=== PATIENT | female | born 1990 | race Caucasian/White ===

== ENCOUNTER 2021-05-19 16:18 | Outpatient (REF) | payer MEDICARE, MEDICAID, SELFPAY | END 2021-05-19 16:19 | disposition home or self-care (01) | LOC: HO.LNP 16:18 | PROVIDERS: Visit Provider Hospitalist | DX: R30.0 Dysuria (principal) | CPT/HCPCS: 87086; 87088; 87186 ==

== ENCOUNTER 2021-12-09 11:20 | Outpatient (REF) | payer MEDICARE, MEDICAID, SELFPAY | END 2021-12-09 11:21 | disposition home or self-care (01) | LOC: HO.LNP 11:20 | PROVIDERS: Visit Provider Physician Assistant | DX: R30.0 Dysuria (principal) | CPT/HCPCS: 87086; 87088; 87186 ==

== ENCOUNTER 2022-11-19 13:40 | Emergency (ER) | payer OTHER, MEDICARE, MEDICAID, SELFPAY ==
--- NOTE | ~2022-11-19 | XR_ITS ---
EXAMINATION: XR LUMBOSACRAL SPINE CLINICAL INFORMATION: Lower lumbar back pain. COMPARISON: None TECHNIQUE: Three views of the lumbosacral spine. FINDINGS: No acute compression deformity or subluxation. Disc heights are maintained. Posterior elements are within normal limits. The SI joints are symmetric. No significant paraspinal soft tissue abnormality. XR/XR lumbar spine 2-3V IMPRESSION: No acute compression deformity or subluxation. If pain persists, consider further evaluation with an MR of the lumbar spine.
--- NOTE | 2022-11-19 13:52 | ED_ITS ---
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 Pain started gradually and rapidly. His low back. Radiates to the buttock in the lower extremities. Pain is described as severe in nature. Worse with movement. It is also worse with certain positions. Bet ter with rest. She has tried ibuprofen which does improve her symptoms. Recently switch from gabapentin to Lyrica which is also improved some of her symptomatology. She denies any loss of bowel or bladder control. She denies any intravenous drug abuse. She has had no fevers or chills. She has had no new neurologic complaints. She does have some ankle related issues which she is being followed for an had a recent MRI. Symptoms were preceded by a yoga routine. There is no traumatic injury. <Gomez Cruz MD - Last Filed: 11/19/22 22:11> Related Data Home Medications: Home Medications Medication Instructions Recorded Confirmed acetaminophen 325 mg tablet 650 mg PO TID PRN fever 04/24/21 12/23/21 azelastine 205.5 mcg (0.15 %) 1 spray intranasal BID 04/24/21 12/23/21 nasal spray budesonide 32 mcg/actuation nasal intranasal 04/24/21 12/23/21 spray (Rhinocort Allergy) cromolyn 100 mg/5 mL oral mg PO 04/24/21 12/23/21 concentrate epinephrine 0.3 mg/0.3 mL IM 04/24/21 12/23/21 injection, auto-injector famotidine 20 mg tablet 0 mg PO 04/24/21 12/23/21 levocetirizine 5 mg tablet mg PO 04/24/21 12/23/21 magnesium oxide 400 mg (241.3 mg 400 mg PO DAILY 04/24/21 12/23/21 magnesium) tablet pregabalin 75 mg capsule 75 mg PO BID 04/24/21 12/23/21 triamcinolone acetonide 0.1 % appl topical BID 04/24/21 12/23/21 topical cream cyclobenzaprine 10 mg tablet 10 mg PO BID PRN 12/09/21 12/23/21 dextroamphetamine-amphetamine 20 40 mg PO BID 12/09/21 12/23/21 mg tablet (Adderall) lorazepam 1 mg tablet 1 mg PO TID PRN 12/09/21 12/23/21 pantoprazole 40 mg tablet,delayed 40 mg PO DAILY 12/09/21 12/23/21 release riboflavin (vitamin B2) 400 mg 400 mg PO DAILY 12/09/21 12/23/21 tablet vortioxetine 20 mg tablet 20 mg PO DAILY 12/09/21 12/23/21 (Trintellix) fluticasone propionate 50 1 spray intranasal DAILY 03/02/22 mcg/actuation nasal spray,suspension (Flonase Allergy Relief) Previous Rx's Medication Instructions Recorded azithromycin 250 mg tablet See Rx Instructions PO .COMPLEX #6 03/02/22 tabs cyclobenzaprine 10 mg tablet 10 mg PO TID PRN muscle spasm #10 11/19/22 tabs meloxicam 15 mg tablet 15 mg PO DAILY PRN pain #14 tabs 11/19/22 oxycodone 5 mg tablet 5 mg PO Q8H PRN pain #7 tabs 11/19/22 prednisone 20 mg tablet 20 mg PO DAILY #5 tabs 11/19/22 <DICKSON Lara - Last Filed: 11/19/22 14:01> Allergies/Adverse Reactions: Allergies Allergy/AdvReac Type Severity Reaction Status Date / Time No Known Allergies Allergy Verified 03/02/22 10:07 <DICKSON Lara - Last Filed: 11/19/22 14:01> Review of Systems Review of Systems: CONSTITUTIONAL: Denies weight loss, fever and chills. HEENT: Denies changes in vision and hearing. RESPIRATORY: Denies SOB and cough. CV: Denies palpitations no CP. GI: Denies abdominal pain, nausea, vomiting and diarrhea. : Denies dysuria and urinary frequency. MSK: Positive myalgia and joint pain. SKIN: Denies rash and pruritus. NEUROLOGICAL: Denies headache and syncope. PSYCHIATRIC: Denies recent changes in mood. Denies anxiety and depression. All other ROS are negative unless in HPI <Gomez Cruz MD - Last Filed: 11/19/22 22:11> [facility] Social History Social History: Social History Alcohol intake: current Alcohol intake frequency: holidays/special occasions only Alcohol type: wine and hard liquor Smoked in Last 30 Days: No Use of substances other than those prescribed or required for medical reasons: Yes Substance Use Type: Marijuana Substance Use Frequency: Daily Substance Use Frequency Other:: daily at bedtime Advance Directives: No <DICKSON Lara - Last Filed: 11/19/22 14:01> Physical Exam Vital Signs: Vital Signs: Last Vital Signs Pulse 57 11/19/22 19:31 Resp 14 11/19/22 20:46 BP 124/73 11/19/22 19:31 Pulse Ox 99 11/19/22 19:31 O2 Del Method 11/19/22 19:31 BMI result Body Mass Index 30.5 <DICKSON Lara - Last Filed: 11/19/22 14:01> Vital Signs: Last Vital Signs Pulse 57 11/19/22 19:31 Resp 14 11/19/22 20:46 BP 124/73 11/19/22 19:31 Pulse Ox 99 11/19/22 19:31 O2 Del Method 11/19/22 19:31 BMI result Body Mass Index 30.5 <Gomez Cruz MD - Last Filed: 11/19/22 22:11> GEN: Well developed, no acute distress, alert, oriented HEENT: Normocephalic, atraumatic, normal external ears, nose appears normal, no oropharyngeal edema or exudates Eyes: Normal to appearance Neck: Supple, no lymphadenopathy Respiratory: Talks in complete sentences, no respiratory distress, clear to auscultation bilaterally Cardiovascular: Regular rate and rhythm, no murmurs rubs or gallops Abdomen: Soft, nontender, nondistended, no guarding, no rebound Back: No CVA tenderness Extremities: No clubbing cyanosis or edema Neurologic: No focal neurologic deficits, cranial nerves 2-12 intact, strength is 5/5 bilaterally Skin: + rash <Gomez Cruz MD - Last Filed: 11/19/22 22:11> Course Course Course Narrative: RME - 32 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 Left side is worse than the right. Reports bilateral leg weakness, in the lower legs. Arrives to triage in a wheelchair. Reports can ambulate with a limp. Also reports many other complaints including nausea, left ear pain, chronic left ankle pain. Plan: will need to be fully examined in treatment room, medicated and reassessed prior to discharge <DICKSON Lara - Last Filed: 11/19/22 14:01> Reevaluation(s) Reevaluation #1: Patient is doing much better at this time. Her nausea has resolved. She did get a dose of Zofran. She complained of some right ear pain but the tympanic membrane was clear there is no evidence of otitis media or externa. We talked about reasons to return to the emergency department otherwise she will follow-up with her primary care provider for pain management <Gomez Cruz MD - Last Filed: 11/19/22 22:11> Time: 22:03 <Gomez Cruz MD - Last Filed: 11/19/22 22:11> Medications Administered Discontinued Medications Generic Name Dose Route Start Last Admin Trade Name Janes PRN Reason Stop Dose Admin Dexamethasone Sodium Phosphate 10 mg 11/19/22 19:59 11/19/22 20:46 Dexamethasone Sod Phosphate 10 Mg/Ml Vial IVPUSH 11/19/22 20:00 10 mg ONCE ONE Administration Diphenhydramine HCl 25 mg 11/19/22 19:59 11/19/22 20:44 Diphenhydramine Hcl 50 Mg/Ml Vial IVPUSH 11/19/22 20:00 25 mg ONCE ONE Administration Famotidine 20 mg 11/19/22 20:07 11/19/22 20:45 Famotidine/Pf 20 Mg/2 Ml Vial IVPUSH 11/19/22 20:08 20 mg ONCE ONE Administration Ketorolac Tromethamine 15 mg 11/19/22 19:59 11/19/22 20:45 Ketorolac Tromethamine 15 Mg/Ml Vial IVPUSH 11/19/22 20:00 15 mg ONCE ONE Administration Lidocaine 2 patch 11/19/22 19:59 11/19/22 20:46 Lidocaine 4 % Patch Adh..Patch TRANSDERMA 11/19/22 20:00 2 patch ONCE ONE Administration Protocol Morphine Sulfate 4 mg 11/19/22 19:59 11/19/22 20:46 Morphine Sulfate 4 Mg/Ml Cartridge IVPUSH 11/19/22 20:00 4 mg ONCE ONE Administration Protocol Ondansetron HCl 4 mg 11/19/22 21:08 11/19/22 21:29 Ondansetron Hcl 4 Mg/2 Ml Vial IVPUSH 11/19/22 21:09 4 mg ONCE ONE Administration <DICKSON Lara - Last Filed: 11/19/22 14:01> Medications Administered Discontinued Medications Generic Name Dose Route Start Last Admin Trade Name Freq PRN Reason Stop Dose Admin Dexamethasone Sodium Phosphate 10 mg 11/19/22 19:59 11/19/22 20:46 Dexamethasone Sod Phosphate 10 Mg/Ml Vial IVPUSH 11/19/22 20:00 10 mg ONCE ONE Administration Diphenhydramine HCl 25 mg 11/19/22 19:59 11/19/22 20:44 Diphenhydramine Hcl 50 Mg/Ml Vial IVPUSH 11/19/22 20:00 25 mg ONCE ONE Administration Famotidine 20 mg 11/19/22 20:07 11/19/22 20:45 Famotidine/Pf 20 Mg/2 Ml Vial IVPUSH 11/19/22 20:08 20 mg ONCE ONE Administration Ketorolac Tromethamine 15 mg 11/19/22 19:59 11/19/22 20:45 Ketorolac Tromethamine 15 Mg/Ml Vial IVPUSH 11/19/22 20:00 15 mg ONCE ONE Administration Lidocaine 2 patch 11/19/22 19:59 11/19/22 20:46 Lidocaine 4 % Patch Adh..Patch TRANSDERMA 11/19/22 20:00 2 patch ONCE ONE Administration Protocol Morphine Sulfate 4 mg 11/19/22 19:59 11/19/22 20:46 Morphine Sulfate 4 Mg/Ml Cartridge IVPUSH 11/19/22 20:00 4 mg ONCE ONE Administration Protocol Ondansetron HCl 4 mg 11/19/22 21:08 11/19/22 21:29 Ondansetron Hcl 4 Mg/2 Ml Vial IVPUSH 11/19/22 21:09 4 mg ONCE ONE Administration <Gomez Cruz MD - Last Filed: 11/19/22 22:11> Medical Decision Making Medical Decision Making MDM Narrative: 32-year-old female with history of Rolando-Danlos syndrome presents with acute low back pain. She denies any loss of bowel or bladder control, history of intravenous drug abuse, fever. She has no midline tenderness. Doubt acute cauda equina syndrome, doubt epidural abscess. Patient does likely have lumbar radiculopathy. There is no emergent indication for an MRI. Will order an x-ray to rule out subluxation given her history of Rolando-Danlos syndrome. Will treat patient with steroids, NSAIDs, opioids. Doubt pyelonephritis given lack of urinary complaints <Gomez Cruz MD - Last Filed: 11/19/22 22:11> Differential Diagnosis Differential Diagnoses: The differential diagnosis associated with the presentation includes (Lumbar radiculopathy, disc disease, musculoskeletal back pain, doubt acute cauda equina syndrome, doubt epidural abscess) <Gomez Cruz MD - Last Filed: 11/19/22 22:11> Admission/Observation Consideration of admission/observation: Escalation of care including admission/observation considered <Gomez Cruz MD - Last Filed: 11/19/22 22:11> Lab Data [facility] Lab Attestation statement: I reviewed the patient's lab results. <Gomez Cruz MD - Last Filed: 11/19/22 22:11> Result Diagrams: 11/19/22 19:57 11/19/22 19:57 <DICKSON Lara - Last Filed: 11/19/22 14:01> Labs: Lab Results 11/19/22 11/19/22 Range/Units 19:57 19:57 WBC 8.2 (4.8-10.8) X10*3/uL RBC 4.77 (4.20-5.50) X10*6/uL Hgb 14.1 (12.0-16.0) g/dl Hct 41.6 (37.0-47.0) % MCV 87.2 (80.0-98.0) fL MCH 29.6 (27.0-33.0) pg MCHC 33.9 (31.0-35.0) g/dl RDW 12.4 (11.0-16.0) % Plt Count 273 (160-400) X10*3/uL MPV 9.6 (9.4-12.3) fL Immature Gran % (Auto) 0.2 (0.0-0.4) % Neut % (Auto) 62.1 (45-73) % Lymph % (Auto) 25.8 (20-40) % [place] % (Auto) 8.5 (2-11) % Eos % (Auto) 2.7 (0-4) % Baso % (Auto) 0.7 (0-2) % Lymph # (Auto) 2.1 (1.2-4.9) X10*3/uL [place] # (Auto) 0.7 (0.1-1.2) X10*3/uL Eos # (Auto) 0.2 (0.0-0.4) X10*3/uL Baso # (Auto) 0.1 (0.0-0.2) X10*3/uL Abs Immat Gran (auto) 0.02 (0.00-0.03) X10*3/uL Absolute Neuts (auto) 5.1 (2.0-8.3) x10*3/uL Absolute Nucleated RBC 0.000 (0.0-0.012) X10*3/uL Nucleated RBC % (auto) 0.0 (0.0-0.2) /100WBC Sodium 140 (135-145) mmol/L Potassium 3.9 (3.3-5.1) mmol/L Chloride 103 (96-108) mmol/L Carbon Dioxide 29 (22-29) mmol/L Anion Gap 12 (12-20) BUN 8 L (9-16) mg/dL Creatinine 0.81 (0.5-1.4) mg/dL Estim Creat Clear Calc 115.9 Estimated GFR > 60 Random Glucose 81 (60-115) mg/dL Calcium 9.4 (8.4-10.2) mg/dL Total Bilirubin 1.7 H (0.0-1.0) mg/dL AST 14 (5-31) U/L ALT 12 (0-31) U/L Alkaline Phosphatase 72 (39-117) U/L Total Protein 7.3 (6.5-8.0) g/dL Albumin 4.7 (3.5-5.0) g/dL <DICKSON Lara - Last Filed: 11/19/22 14:01> Lab Results 11/19/22 11/19/22 Range/Units 19:57 19:57 WBC 8.2 (4.8-10.8) X10*3/uL RBC 4.77 (4.20-5.50) X10*6/uL Hgb 14.1 (12.0-16.0) g/dl Hct 41.6 (37.0-47.0) % MCV 87.2 (80.0-98.0) fL MCH 29.6 (27.0-33.0) pg MCHC 33.9 (31.0-35.0) g/dl RDW 12.4 (11.0-16.0) % Plt Count 273 (160-400) X10*3/uL MPV 9.6 (9.4-12.3) fL Immature Gran % (Auto) 0.2 (0.0-0.4) % Neut % (Auto) 62.1 (45-73) % Lymph % (Auto) 25.8 (20-40) % Sauk % (Auto) 8.5 (2-11) % Eos % (Auto) 2.7 (0-4) % Baso % (Auto) 0.7 (0-2) % Lymph # (Auto) 2.1 (1.2-4.9) X10*3/uL [place] # (Auto) 0.7 (0.1-1.2) X10*3/uL Eos # (Auto) 0.2 (0.0-0.4) X10*3/uL Baso # (Auto) 0.1 (0.0-0.2) X10*3/uL Abs Immat Gran (auto) 0.02 (0.00-0.03) X10*3/uL Absolute Neuts (auto) 5.1 (2.0-8.3) x10*3/uL Absolute Nucleated RBC 0.000 (0.0-0.012) X10*3/uL Nucleated RBC % (auto) 0.0 (0.0-0.2) /100WBC Sodium 140 (135-145) mmol/L Potassium 3.9 (3.3-5.1) mmol/L Chloride 103 (96-108) mmol/L Carbon Dioxide 29 (22-29) mmol/L Anion Gap 12 (12-20) BUN 8 L (9-16) mg/dL Creatinine 0.81 (0.5-1.4) mg/dL Estim Creat Clear Calc 115.9 Estimated GFR > 60 Random Glucose 81 (60-115) mg/dL Calcium 9.4 (8.4-10.2) mg/dL Total Bilirubin 1.7 H (0.0-1.0) mg/dL AST 14 (5-31) U/L ALT 12 (0-31) U/L Alkaline Phosphatase 72 (39-117) U/L Total Protein 7.3 (6.5-8.0) g/dL Albumin 4.7 (3.5-5.0) g/dL <Gomez Cruz MD - Last Filed: 11/19/22 22:11> Independent Interpretation I performed an independent interpretation of an: Plain X-Ray (No acute fracture or subluxation) <Gomez Cruz MD - Last Filed: 11/19/22 22:11> External Record Review External record reviewed: Outpatient record (Walk-in clinic record from 03/02/2022) <Gomez Cruz MD - Last Filed: 11/19/22 22:11> Tests considered The following testing was considered but not selected: MRI lumbar spine <Gomez Cruz MD - Last Filed: 11/19/22 22:11> Prescription Management I considered prescription management with: Pain Medication <Gomez Cruz MD - Last Filed: 11/19/22 22:11> Discharge Plan Discharge Clinical Impression: Bilateral lumbar radiculopathy, Serum total bilirubin elevated <DICKSON Lara - Last Filed: 11/19/22 14:01> Patient Disposition: Home, Self-Care <DICKSON Lara - Last Filed: 11/19/22 14:01> Instructions: Acute Low Back Pain (ED), Lumbar Radiculopathy (ED) <DICKSON Lara - Last Filed: 11/19/22 14:01> Additional Instructions: Your additionally found to have a slightly elevated bilirubin but the rest of your liver tests are normal. Bilirubin is still produce prior liver and s tarting her gallbladder. Some people have this normally elevated. Do not have any previous lab tests to compare this to. Typically this is benign in nature. <DICKSON Lara Last Filed: 11/19/22 14:01> Prescriptions: New meloxicam 15 mg tablet 15 mg PO DAILY PRN (Reason: pain) Qty: 14 0RF cyclobenzaprine 10 mg tablet 10 mg PO TID PRN (Reason: muscle spasm) Qty: 10 0RF oxycodone 5 mg tablet 5 mg PO Q8H PRN (Reason: pain) Qty: 7 0RF Rx Instructions: Partial Fill upon patient request. prednisone 20 mg tablet 20 mg PO DAILY Qty: 5 0RF No Action cromolyn 100 mg/5 mL concentrate PO pregabalin 75 mg capsule 75 mg PO BID levocetirizine 5 mg tablet PO famotidine 20 mg tablet 0 mg PO azelastine 205.5 mcg (0.15 %) spray,non-aerosol 1 spray intranasal BID budesonide [Rhinocort Allergy] 32 mcg/actuation spray,non-aerosol intranasal epinephrine 0.3 mg/0.3 mL auto-injector IM triamcinolone acetonide 0.1 % cream topical BID magnesium oxide 400 mg (241.3 mg magnesium) tablet 400 mg PO DAILY acetaminophen 325 mg tablet 650 mg PO TID PRN (Reason: fever) dextroamphetamine-amphetamine [Adderall] 20 mg tablet 40 mg PO BID Rx Instructions: administer doses at least 4-6 hours apart lorazepam 1 mg tablet 1 mg PO TID PRN pantoprazole 40 mg tablet,delayed release (DR/EC) 40 mg PO DAILY cyclobenzaprine 10 mg tablet 10 mg PO BID PRN Trintellix 20 mg tablet 20 mg PO DAILY riboflavin (vitamin B2) 400 mg tablet 400 mg PO DAILY fluticasone propionate [Flonase Allergy Relief] 50 mcg/actuation spray,suspension 1 spray intranasal DAILY Rx Instructions: administer into each nostril azithromycin 250 mg tablet See Rx Instructions PO .COMPLEX Qty: 6 0RF Rx Instructions: take 500 mg today (day 1), then 250 mg for 4 days (days 2-5) PO <DICKSON Lara - Last Filed: 11/19/22 14:01> Referrals: Yadira Waldron MD [Primary Care Provider] - 2 days <DICKSON Lara - Last Filed: 11/19/22 14:01>
[2022-11-19 13:53] VITALS: BP 119/81; PULSE 81; RESP 18; O2SAT 100; BMI 30.5
[2022-11-19 19:31] VITALS: BP 124/73; PULSE 57; RESP 16; O2SAT 99
[2022-11-19 20:01] LABS: MANUAL DIFF FLAG NO
[2022-11-19 20:04] LABS: Basophils Absolute Auto 0.1 X10*3/uL (0.0-0.2); Basophils Percent Auto 0.7 % (0-2); Eosinophils Absolute Auto 0.2 X10*3/uL (0.0-0.4); Eosinophils Percent Auto 2.7 % (0-4); Hematocrit 41.6 % (37.0-47.0); Hemoglobin 14.1 g/dl (12.0-16.0); Imm Gran Abs Auto 0.02 X10*3/uL (0.00-0.03); Imm Gran Pct Auto 0.2 % (0.0-0.4); Lymphocytes Absolute Auto 2.1 X10*3/uL (1.2-4.9); Lymphocytes Percent Auto 25.8 % (20-40); Mean Corpuscular HGB Conc 33.9 g/dl (31.0-35.0); Mean Corpuscular Hemoglobin 29.6 pg (27.0-33.0); Mean Corpuscular Volume 87.2 fL (80.0-98.0); Mean Platelet Volume 9.6 fL (9.4-12.3); Monocytes Absolute Auto 0.7 X10*3/uL (0.1-1.2); Monocytes Percent Auto 8.5 % (2-11); Neutrophils Absolute Auto 5.1 x10*3/uL (2.0-8.3); Neutrophils Percent Auto 62.1 % (45-73); Platelet Count 273 X10*3/uL (160-400); Red Blood Count 4.77 X10*6/uL (4.20-5.50); Red Cell Distribution Width 12.4 % (11.0-16.0); White Blood Count 8.2 X10*3/uL (4.8-10.8)
[2022-11-19 20:29] LABS: Alanine Aminotransferase 12 U/L (0-31); Albumin Level 4.7 g/dL (3.5-5.0); Alkaline Phosphatase 72 U/L (39-117); Anion Gap 12 (12-20); Aspartate Amino Transferase 14 U/L (5-31); Bilirubin Total 1.7 mg/dL (0.0-1.0); Blood Urea Nitrogen 8 mg/dL (9-16); Calcium 9.4 mg/dL (8.4-10.2); Carbon Dioxide 29 mmol/L (22-29); Chloride 103 mmol/L (96-108); Creatinine Clr Calc Pharmacy 115.9; Estimated Glomerular Filt Rate > 60; Glucose Random 81 mg/dL (60-115); Potassium 3.9 mmol/L (3.3-5.1); Sodium 140 mmol/L (135-145); Total Protein 7.3 g/dL (6.5-8.0)
[2022-11-19] MEDS: diphenhydrAMINE HCL 50 MG/ML VIAL 25 MG IVPUSH (20:44)
[2022-11-19] MEDS: Ketorolac Tromethamine 15 MG/ML VIAL IVPUSH (20:45)
[2022-11-19] MEDS: Famotidine/PF 20 MG/2 ML VIAL IVPUSH (20:45)
[2022-11-19 20:46] VITALS: RESP 14
[2022-11-19] MEDS: Morphine Sulfate 4 MG/ML CARTRIDGE IVPUSH (20:46)
[2022-11-19] MEDS: dexAMETHasone sod phosphate 10 MG/ML VIAL IVPUSH (20:46)
[2022-11-19] MEDS: Lidocaine 4 % Patch ADH..PATCH 2 PATCH TRANSDERMA (20:46)
[2022-11-19] MEDS: ondansetron HCL 4 MG/2 ML VIAL IVPUSH (21:29)
[2022-11-19 22:34] VITALS: BP 123/61; PULSE 65; RESP 16; TEMP 36.3; O2SAT 99
== END 2022-11-19 22:37 | disposition home or self-care (01) ==
PROVIDERS: Emergency Provider Emergency Medicine; PCP Family Medicine
DX: M54.16 Radiculopathy, lumbar region (principal); R17 Unspecified jaundice; M54.42 Lumbago with sciatica, left side; M54.41 Lumbago with sciatica, right side; F12.90 Cannabis use, unspecified, uncomplicated; Z79.899 Other long term (current) drug therapy
CPT/HCPCS: 36415; 72100; 80053; 85025; 96374; 96375; 99284; J1100; J1200; J1885; J2270; J2405

== ENCOUNTER 2023-08-20 16:33 | Emergency (ER) | payer OTHER, SELFPAY ==
[2023-08-20 16:53] VITALS: BP 128/86; PULSE 70; RESP 16; TEMP 37.1; O2SAT 96; BMI 31.3
--- NOTE | 2023-08-20 16:55 | ED_ITS ---
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 comes here for low back pain , Patient had MRI in 02/12 which was just arthritis had multiple MRIs in the past and followed by pain clinic and human services care specialist in [facility] no acute injury no bladder or bowel involvement Related Data Home Medications Medication Instructions Recorded Confirmed acetaminophen 325 mg tablet 650 mg PO TID PRN fever 04/24/21 12/23/21 azelastine 205.5 mcg (0.15 %) 1 spray intranasal BID 04/24/21 12/23/21 nasal spray budesonide 32 mcg/actuation nasal intranasal 04/24/21 12/23/21 spray (Rhinocort Allergy) cromolyn 100 mg/5 mL oral mg PO 04/24/21 12/23/21 concentrate epinephrine 0.3 mg/0.3 mL IM 04/24/21 12/23/21 injection, auto-injector famotidine 20 mg tablet 0 mg PO 04/24/21 12/23/21 levocetirizine 5 mg tablet mg PO 04/24/21 12/23/21 magnesium oxide 400 mg (241.3 mg 400 mg PO DAILY 04/24/21 12/23/21 magnesium) tablet pregabalin 75 mg capsule 75 mg PO BID 04/24/21 12/23/21 triamcinolone acetonide 0.1 % appl topical BID 04/24/21 12/23/21 topical cream cyclobenzaprine 10 mg tablet 10 mg PO BID PRN 12/09/21 12/23/21 dextroamphetamine-amphetamine 20 40 mg PO BID 12/09/21 12/23/21 mg tablet (Adderall) lorazepam 1 mg tablet 1 mg PO TID PRN 12/09/21 12/23/21 pantoprazole 40 mg tablet,delayed 40 mg PO DAILY 12/09/21 12/23/21 release riboflavin (vitamin B2) 400 mg 400 mg PO DAILY 12/09/21 12/23/21 tablet vortioxetine 20 mg tablet 20 mg PO DAILY 12/09/21 12/23/21 (Trintellix) fluticasone propionate 50 1 spray intranasal DAILY 03/02/22 mcg/actuation nasal spray,suspension (Flonase Allergy Relief) Previous Rx's Medication Instructions Recorded azithromycin 250 mg tablet See Rx Instructions PO .COMPLEX #6 03/02/22 tabs cyclobenzaprine 10 mg tablet 10 mg PO TID PRN muscle spasm #10 11/19/22 tabs meloxicam 15 mg tablet 15 mg PO DAILY PRN pain #14 tabs 11/19/22 oxycodone 5 mg tablet 5 mg PO Q8H PRN pain #7 tabs 11/19/22 prednisone 20 mg tablet 20 mg PO DAILY #5 tabs 11/19/22 Allergies Allergy/AdvReac Type Severity Reaction Status Date / Time No Known Allergies Allergy Verified 08/20/23 16:53 Review of Systems Review of Systems: Yes all other systems are reviewed and are negative [facility] Social History Social History Alcohol intake: current Alcohol intake frequency: holidays/special occasions only Alcohol type: wine and hard liquor Substance Use Type: Marijuana Advance Directives: No Advance Directives Information Provided: No Physical Exam ED Vital Signs: Vital Signs - 24 hr 08/20/23 16:53 08/20/23 19:50 08/20/23 23:36 Temperature 98.7 F 97.6 F 98.3 F Pulse Rate 70 69 60 Respiratory Rate 16 18 20 Blood Pressure 128/86 119/82 140/88 H Pulse Oximetry 96 98 100 Oxygen Delivery Method Room Air Room Air Room Air BMI result Body Mass Index 31.3 Appearance: Alert. Oriented X3. No acute distress. Eyes: PERRLA, No Nystagmus ENT: Pharynx normal. Oral Mucosa moist Neck: Normal inspection. Neck supple. CVS: Normal heart rate and rhythm. Pulses normal. Respiratory: No respiratory distress. Equal air entry bilateral, no wheezing/rales/rhonchi Abdomen: Soft and nontender. Bowel sounds are present, no mass palpable, no CVA tenderness Skin: Skin warm and dry. Normal skin color. Normal skin turgor. Extremities: No lower extremity edema. No calf tenderness diffuse tenderness lower spine SLR negative no focal deficit Neuro: Oriented X 3. No motor deficit. No sensory deficit.No cerebellar signs , cranial nerves II-XII intact Course Course Course Narrative: This is an RME: Additional HPI, ROS, PE not included below will be deferred to primary provider. 33-year-old female with chronic back pain presents for evaluation of worsening lower back pain. The pain radiates down her legs. She has chronic paresthesias in the bilateral legs--this is not worsening. She thinks she tweaked her back when picking up her toddler. No trauma or falls. No urinary/bowel incontinence. Plan: observation Medications Administered Discontinued Medications Generic Name Dose Route Start Last Admin Trade Name Freq PRN Reason Stop Dose Admin Ketorolac Tromethamine 60 mg 08/21/23 02:15 08/21/23 02:29 Ketorolac Tromethamine 60 Mg/2 Ml Vial IM 08/21/23 02:16 60 mg ONCE ONE Administration Morphine Sulfate 15 mg 08/21/23 02:15 08/21/23 02:29 Morphine Sulfate Immed Release 15 Mg Tablet PO 08/21/23 02:16 15 mg ONCE ONE Administration Ondansetron HCl 4 mg 08/21/23 00:08 08/21/23 00:17 Ondansetron Odt 4 Mg Tab.Rapdis TRANSLINGU 08/21/23 00:09 4 mg ONCE ONE Administration Medical Decision Making Medical Decision Making [facility] Narrative: Patient has chronic pain followed with pain clinic and Spine Clinic advised to follow up with them no signs of cauda equina or acute spinal injury Discharge Plan Discharge Clinical Impression: Chronic low back pain Patient Disposition: Home, Self-Care Instructions: Chronic Back Pain (DC) Additional Instructions: Take pain medication as prescribed by your pain specialist Follow-up with benefits specialist Prescriptions: No Action meloxicam 15 mg tablet 15 mg PO DAILY PRN (Reason: pain) Qty: 14 0RF cyclobenzaprine 10 mg tablet 10 mg PO TID PRN (Reason: muscle spasm) Qty: 10 0RF oxycodone 5 mg tablet 5 mg PO Q8H PRN (Reason: pain) Qty: 7 0RF Rx Instructions: Partial Fill upon patient request. prednisone 20 mg tablet 20 mg PO DAILY Qty: 5 0RF cromolyn 100 mg/5 mL concentrate PO pregabalin 75 mg capsule 75 mg PO BID levocetirizine 5 mg tablet PO famotidine 20 mg tablet 0 mg PO azelastine 205.5 mcg (0.15 %) spray,non-aerosol 1 spray intranasal BID budesonide [Rhinocort Allergy] 32 mcg/actuation spray,non-aerosol intranasal epinephrine 0.3 mg/0.3 mL auto-injector IM triamcinolone acetonide 0.1 % cream topical BID magnesium oxide 400 mg (241.3 mg magnesium) tablet 400 mg PO DAILY acetaminophen 325 mg tablet 650 mg PO TID PRN (Reason: fever) dextroamphetamine-amphetamine [Adderall] 20 mg tablet 40 mg PO BID Rx Instructions: administer doses at least 4-6 hours apart lorazepam 1 mg tablet 1 mg PO TID PRN pantoprazole 40 mg tablet,delayed release (DR/EC) 40 mg PO DAILY cyclobenzaprine 10 mg tablet 10 mg PO BID PRN Trintellix 20 mg tablet 20 mg PO DAILY riboflavin (vitamin B2) 400 mg tablet 400 mg PO DAILY fluticasone propionate [Flonase Allergy Relief] 50 mcg/actuation spray,suspension 1 spray intranasal DAILY Rx Instructions: administer into each nostril azithromycin 250 mg tablet See Rx Instructions PO .COMPLEX Qty: 6 0RF Rx Instructions: take 500 mg today (day 1), then 250 mg for 4 days (days 2-5) PO Referrals: Jose De Jesus Pino MD [Physician] - 1 week Interventions: ED Discharge Assessment Last Done: 08/21/23 02:59 Discharge Date/Time: 08/21/23 03:00
[2023-08-20 19:50] VITALS: BP 119/82; PULSE 69; RESP 18; TEMP 36.4; O2SAT 98
--- NOTE | 2023-08-20 20:00 | PC.NURSE ---
patient a&ox3, vss, pt c/o 8-06/02 low back pain, pt currently awaiting a provider to poultry picker the case and pt was made aware that it maybe a bit of a wait for them to be seen. Pt is appreciative at this time. will continue to monitor.
[2023-08-20 23:36] VITALS: BP 140/88; PULSE 60; RESP 20; TEMP 36.8; O2SAT 100
--- NOTE | 2023-08-20 23:44 | PC.NURSE ---
pt c/o nausea, back pain 05/02
[2023-08-21] MEDS: Ondansetron ODT 4 MG TAB.RAPDIS TRANSLINGU (00:17)
--- NOTE | 2023-08-21 00:25 | PC.NURSE ---
pt medicated with SL zofran per MAR for nausea. pt understands wait time is still unknown to be seen by provider at this time
[2023-08-21] MEDS: Morphine Sulfate Immed Release 15 MG TABLET PO (02:29)
[2023-08-21] MEDS: Ketorolac Tromethamine 60 MG/2 ML VIAL IM (02:29)
== END 2023-08-21 03:00 | disposition home or self-care (01) ==
PROVIDERS: Emergency Provider Internal Medicine
DX: G89.29 Other chronic pain (principal); M54.50 Low back pain, unspecified
CPT/HCPCS: 96372; 99284; J1885

== ENCOUNTER 2024-01-04 09:19 | Outpatient (AMB) | payer OTHER, SELFPAY ==
--- NOTE | 2024-01-04 09:42 | MHC.OFFWIV ---
Intake Vital Signs 01/04/24 09:52 Height 5 ft 7 in Weight 205 lb BMI 32.1 BP 124/82 Blood Pressure Location Lt brachial Position Sitting Pulse 67 Pulse Source Pulse Oximeter Temp 98.4 F Temp Source Oral Pulse Oximetry (%) 97 Oxygen Delivery Method Room Air Intake Visit Reasons: EP UTI Intake Note: Pt is here today c/o urgency upon urination : Pt took AZO and is on her menses Allergies No Known Allergies Allergy (Verified 08/20/23 16:53) HPI EP UTI HPI Details Patient is a 33-year-old female comes to the walk-in clinic complaining of acute burning with urination that started last night. No gross hematuria, but she does also have her menses currently, which is also causing her generalized abdominal cramping. No report of recent . She denies fever or chills, nausea vomiting or diarrhea, weakness or dizziness, malaise or myalgias, flank pain or back pain other than her baseline, respiratory symptoms, or other significant associated symptoms. [facility] Social History Alcohol intake: current Alcohol intake frequency: holidays/special occasions only Alcohol type: wine and hard liquor Substance Use Type: Marijuana Review of Systems Const All systems reviewed & are unremarkable except as noted in HPI and below Physical Exam Vital Signs: Last Vital Signs Temp 98.4 F 01/04/24 09:52 Pulse 67 01/04/24 09:52 BP 124/82 01/04/24 09:52 Pulse Ox 97 01/04/24 09:52 Oxygen Delivery Method Room Air 01/04/24 09:52 BMI result Body Mass Index 32.1 Const General: cooperative, healthy appearing, comfortable, no acute distress, alert, awake, Physically active and well groomed; No anxious, diaphoretic, ill appearing, intoxicated appearing, poor hygiene or tired appearing Nutritional Appearance: average body habitus Limitations: no limitations Resp Effort & Inspection: normal respiratory effort GI Palpation (GI): Tenderness to palpation present (GI) suprapubicly General: Yes no CVA tenderness Back/Spine/Pelvis Back: no CVA tenderness Skin Other: Good color, warm and dry Psych Appearance: grossly normal Mental Status: mental status grossly normal Speech and movement: Normal speech and movement present Affect: normal affect Attitude: cooperative Thought process: Normal thought process present Insight: Good insight present (Psych) Judgement: Good judgement present (Psych) Results AMB Urinalysis, Automated UA Leukoctes 500 Arnoldo/uL Last Edit by Claudia Marley CMA on 01/04/24 09:45 UA Nitrite Positive Last Edit by Claudia Marley CMA on 01/04/24 09:45 UA Urobilinogen 4 mg/dL Last Edit by Claudia Marley CMA on 01/04/24 09:45 UA Protein 15 mg/dL Last Edit by Claudia Marley CMA on 01/04/24 09:45 UA pH 6.0 Last Edit by Claudia Marley CMA on 01/04/24 09:45 UA Blood 200 Dillon/uL Last Edit by Claudia Marley CMA on 01/04/24 09:45 UA Specific [place] 1.025 Last Edit by Claudia Marley, SHERRI on 01/04/24 09:45 UA Ketone Positive Last Edit by Claudia Marley CMA on 01/04/24 09:45 UA Bilirubin 2 mg/dL Last Edit by Claudia Marley CMA on 01/04/24 09:45 UA Glucose 0 mg/dL Last Edit by Claudia Marley CMA on 01/04/24 09:45 Results Reviewed Results Reviewed: Laboratory Last Values Urine pH (Auto) 6.0 01/04/24 09:42 Specific [place] (Auto) 1.025 01/04/24 09:42 Urine Protein (Auto) 15 mg/dL 01/04/24 09:42 Glucose (UA)(Auto) 0 mg/dL 01/04/24 09:42 Urine Ketones (Auto) Positive 01/04/24 09:42 Urine Blood (Auto) 200 Dillon/uL 01/04/24 09:42 Urine Nitrite (Auto) Positive 01/04/24 09:42 Urine Bilirubin (Auto) 2 mg/dL 01/04/24 09:42 Urine Urobilinogen (Auto) 4 mg/dL 01/04/24 09:42 Leukocyte Esterase (Auto) 500 Arnoldo/uL 01/04/24 09:42 Positive findings for UTI Assessment & Plan Assessment & Plan (1) UTI (urinary tract infection): Code(s): N39.0 - Urinary tract infection, site not specified Qualifiers: Urinary tract infection type: acute cystitis Hematuria presence: with hematuria Qualified Code(s): N30.01 - Acute cystitis with hematuria Plan: Patient with apparent acute cystitis, non complicated with abnormal urine dip today, including heme and she is positive for nitrites. Her last UTI years ago did clear with Macrobid, and she does not have symptoms that would be indicative of an upper urinary tract infection, so we will write that again for today. She can continue the azo [id number] as needed. She will continue adequate fluid intake to help flush this out also. She knows to follow up if symptoms persist or worsen, or go to the emergency department with worrisome symptoms, which we discussed today. Orders: Orders AMB Urinalysis Automated Today Z13.9 - Encounter for screening, unspecified Medications: New nitrofurantoin monohyd/m-cryst 100 mg (Macrobid) must administer with a meal/food 100 mg PO Q12H 5 days 10 caps 0RF N39.0 - Urinary tract infection, site not specified Coding Level of Care Code Est Pt Level 4 (68933) Diagnoses Acute cystitis with hematuria N30.01 Urinary tract infection type: acute cystitis Hematuria presence: with hematuria
[2024-01-04 09:52] VITALS: BP 124/82; PULSE 67; TEMP 36.9; O2SAT 97; BMI 32.1
== END 2024-01-04 12:32 | disposition home or self-care (01) ==
PROVIDERS: Visit Provider Physician Assistant Medical
DX: N30.01 Acute cystitis with hematuria (principal)
CPT/HCPCS: 81003; 99051; 99214